=== PATIENT | male | born 1995 | race Caucasian/White ===

== ENCOUNTER 2019-07-04 13:36 | Emergency (ER) | payer SELFPAY ==
[2019-07-04 13:37] VITALS: BP 179/97; PULSE 100; RESP 17; TEMP 37.1; O2SAT 95; BMI 42.1
--- NOTE | 2019-07-04 13:52 | PC.NURSE ---
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 Patient reports yesterday his feet were severly swollen to the point when ambulating in bare feet his toes did not touch floor. Patient has minimal if any swelling at present time. Pulses diminished bilaterally with Left > Right. Capillary refill > 3 seconds. Patient reports a sensation of pins and needles.
[2019-07-04 14:38] LABS: Basophils % 0.5 %; Eosinophils # 0.2 10^3/uL (0.0-0.8); Hematocrit 41.7 % (42.0-52.0); Hemoglobin 13.8 g/dL (11.7-16.6); Lymphocytes # 2.1 10^3/uL (0.8-4.8); Lymphocytes % 35.3 %; Mean Corpuscular HGB Conc 33.1 g/dL (30.0-36.0); Mean Corpuscular Hemoglobin 27.9 pg (28.0-34.0); Mean Corpuscular Volume 84.2 fL (80-94); Monocytes # 0.5 10^3/uL (0.2-0.9); Monocytes % 8.7 %; Neutrophils # 3.1 10^3/uL (1.8-7.7); Neutrophils % 52.3 %; Nucleated Red Blood Cells % 0 %; Platelet Count 261 10^3/cmm (130-400); Red Blood Count 4.95 10^6/uL (4.1-5.3); Red Cell Distribution Width 12.7 % (12.1-15.1)
[2019-07-04 14:59] LABS: Alanine Aminotransferase 108 U/L (0-41); Albumin Level 4.5 g/dL (3.5-5.2); Alkaline Phosphatase 87 IU/L (40-130); Aspartate Amino Transferase 61 U/L (0-40); Blood Urea Nitrogen 19 mg/dL (6-20); Calcium 9.7 mg/dL (8.5-10.5); Carbon Dioxide 24 mmol/L (22-29); Chloride 105 mmol/L (98-107); Globulin 3.5 g/dL (1.3-4.6); Glomerular Filtration Rate 91.8 mL/min (90-130); Glucose 132 mg/dL (65-115); Sodium 139 mmol/L (136-145); Total Bilirubin 0.3 mg/dL (0.15-1.2)
--- NOTE | 2019-07-04 15:09 | ED_ITS ---
HPI - Extremity Problem General: Chief complaint: Extremity Injury, Lower Stated complaint: SWOLLEN FEET Time Seen by Provider: 07/04/19 13:52 Source: patient Mode of arrival: ambulatory Limitations: no limitations History of Present Illness: HPI Narrative: Patient is a 24-year-old male who presents to ED today with complaints of bilateral feet swelling that he noticed yesterday when he got off work. Patient states the swelling is subsided upon arrival. He denies color/temperature changes in his extremities. No numbness/tingling/loss of sensation. Denies chest pain, shortness of breath, difficulty breathing. He has no other complaints currently. Patient states he is on his feet all day at work. MD Complaint: extremity swelling Pain Consistency: constant Location: left, right and lower extremity Radiation: none Relieving factors: elevation Associated symptoms: Reports no associated symptoms; Deny chest pain, fever(s) or rash Review of Systems Const: Denies: fever, chills, body aches, fatigue or malaise Card: Reports: swelling of feet/ankles; Denies: chest pain, palpitations, irregular heart rhythm, edema, lightheadedness, syncope, pre-syncope, shortness of breath on exertion, shortness of breath when lying down, leg pain with exertion or bluish discoloration of hands/feet Resp: Denies: shortness of breath, productive cough, coughing up blood or chest congestion Skin/Breast: Denies: rash, skin tenderness or changes in skin color Neuro: Denies: numbness in extremities, weakness in extremities or changes in sensation PFSH ED PFSH: Statuses (acute, chronic, etc) shown below reflect problem list status as previously entered and may not be historically accurate Social History Smoking and tobacco status: former smoker Physical Exam Const: COMMON NORMALS: no apparent distress, oriented x3, no limitations, alert and well nourished Resp: COMMON NORMALS: normal respiratory effort and clear to auscultation bilaterally AUSCULTATION: clear to auscultation bilaterally Cardio: COMMON NORMALS: regular rate and regular rhythm RATE: regular rate RHYTHM: regular rhythm Extremity: COMMON NORMALS: normal to inspection, full ROM, normal capillary refill, no joint enlargement, no clubbing, cyanosis or edema, no calf tenderness and no pedal edema OTHER: no swelling appreciated on exam today; pt states swelling has subsided Neuro: COMMON NORMALS: oriented x3 SENSORIUM/ORIENTATION: Yes alert Course Vital Signs: Vital signs: Vital Signs Temperature 98.7 F 07/04/19 13:37 Pulse Rate 100 07/04/19 13:37 Respiratory Rate 17 07/04/19 13:37 Blood Pressure 179/97 07/04/19 13:37 Pulse Oximetry 95 07/04/19 13:37 MDM - Extremity (Nontraumatic) Lab Data: Labs: Lab Results 07/04/19 07/04/19 Range/Units 14:30 14:30 WBC 6.0 (4.0-10.0) 10^3/ uL RBC 4.95 (4.1-5.3) 10^6/u L Hgb 13.8 (11.7-16.6) g/dL Hct 41.7 L (42.0-52.0) % MCV 84.2 (80-94) fL MCH 27.9 L (28.0-34.0) pg MCHC 33.1 (30.0-36.0) g/dL RDW 12.7 (12.1-15.1) % Plt Count 261 (130-400) 10^3/c mm MPV 10.0 (7.4-10.4) fL Neut % (Auto) 52.3 % Lymph % (Auto) 35.3 % [place] % (Auto) 8.7 % Eos % (Auto) 3.0 % Baso % (Auto) 0.5 % Neut # (Auto) 3.1 (1.8-7.7) 10^3/u L Lymph # (Auto) 2.1 (0.8-4.8) 10^3/u L [place] # (Auto) 0.5 (0.2-0.9) 10^3/u L Eos # (Auto) 0.2 (0.0-0.8) 10^3/u L Baso # (Auto) 0.0 (0.0-0.1) 10^3/u L Nucleated RBC % (a uto) 0 % Nucleated RBCs # 0.0 /100WBC Sodium 139 (136-145) mmol/L Potassium 4.0 (3.5-5.1) mmol/L Chloride 105 (98-107) mmol/L Carbon Dioxide 24 (22-29) mmol/L Anion Gap 14.0 (5-19) BUN 19 (6-20) mg/dL Creatinine 1.0 (0.7-1.2) mg/dL GFR Calculation 91.8 (90-130) mL/min Glucose 132 H (65-115) mg/dL Calcium 9.7 (8.5-10.5) mg/dL Total Bilirubin 0.3 (0.15-1.2) mg/dL AST 61 H (0-40) U/L ALT 108 H (0-41) U/L Alkaline Phosphata se 87 (40-130) IU/L Total Protein 8.0 (6.6-8.7) g/dL Albumin 4.5 (3.5-5.2) g/dL Globulin 3.5 (1.3-4.6) g/dL Discharge Plan Discharge Patient Disposition: Home, Self-Care Clinical Impression: Pedal edema Condition: Stable Prescriptions: No Action No Known Home Medications RF: 0 Discharge Orders: Discharge Order (Routine); Ordered 07/04/19 Ordered By: Pavithra Merrill Discharge Diet: Usual diet Discharge Activity: Resume usual activity Activity Restrictions/Additional Instructions: 1) Compression stockings 2) Ice and elevation after work Coding Level of Care Code ED Loading Inspector for Yoly Ramirez
[2019-07-04 15:59] VITALS: BP 149/91; PULSE 82; RESP 16; TEMP 36.6; O2SAT 98
== END 2019-07-04 15:25 | disposition home or self-care (01) ==
PROVIDERS: Emergency Provider Physician Assistant
DX: R60.0 Localized edema (principal); Z87.891 Personal history of nicotine dependence
CPT/HCPCS: 36415; 80053; 85025; 99281; 99282

== ENCOUNTER 2023-06-02 19:23 | Emergency (ER) | payer SELFPAY ==
--- NOTE | 2023-06-02 19:31 | XRR_ITS ---
PROCEDURE INFORMATION: Exam: XR Chest Exam date and time: 06/02/2023 8:00 PM Age: 28 years old Clinical indication: Pain; Chest pressure; Additional info: Cp TECHNIQUE: Imaging protocol: Radiologic exam of the chest. Views: 1 view. COMPARISON: CR XR chest 2V* [id number] 07/06/2017 10:43 AM FINDINGS: Lungs: Unremarkable. No consolidation. Pleural spaces: Unremarkable. No pleural effusion. No pneumothorax. Heart/Mediastinum: Unremarkable. No cardiomegaly. Bones/joints: Unremarkable. XR/XR chest 1V portable [id number] IMPRESSION: No acute findings.
[2023-06-02 19:42] VITALS: BP 173/101; PULSE 118; RESP 20; TEMP 37.4; O2SAT 95
--- NOTE | 2023-06-02 20:57 | W.ED.GENADLT ---
HPI - General Adult General: Chief complaint: General Medical Stated complaint: Pain in lung fever Time Seen by Provider: 06/02/23 20:56 History of Present Illness: 28-year-old male patient comes in today for complaints of cough and congestion for the last 4 days. Patient reports that his daughter had the flu. Patient continues to have symptoms and feels like he is not getting better. Patient also reports difficulty swallowing and sore throat. Review of Systems General: Reports: 10 or more systems reviewed and unremarkable except in HPI and below ENMT: Reports: throat pain Resp: Reports: non-productive cough PFSH ED PFSH: Social History Smoking and tobacco/nicotine status: former use of tobacco/nicotine Physical Exam Const: COMMON NORMALS: alert HENMT: COMMON NORMALS: normocephalic HEAD & SCALP: normocephalic MOUTH: Normal oral and palatal mucosa present THROAT: posterior oropharynx abnormal edema and erythema Neck/C-Spine: COMMON NORMALS: full ROM Chest: COMMONS NORMALS: normal inspection of the chest Resp: COMMON NORMALS: normal respiratory effort and clear to auscultation bilaterally AUSCULTATION: clear to auscultation bilaterally Cardio: COMMON NORMALS: regular rate RATE: regular rate GI: COMMON NORMALS: Soft to palpation and non-tender PALPATION: Yes Soft to palpation Back/Pelvis: COMMON NORMALS: thoracic and lumbar spine normal to inspection Extremity: COMMON NORMALS: normal to inspection Neuro: SENSORIUM/ORIENTATION: Yes alert Skin: COMMON NORMALS: turgor normal GENERAL SKIN EXAM: turgor normal Course Vital Signs: Vital signs: Vital Signs Temperature 99.3 F 06/02/23 19:42 Pulse Rate 118 H 06/02/23 19:42 Respiratory Rate 20 H 06/02/23 19:42 Blood Pressure 194/105 06/02/23 21:34 Pulse Oximetry 98 06/02/23 21:34 [facility] - General Adult Medical Decision Making Patient presents tonight with complaints of cough and congestion for 4 days and worsening sore throat. On exam patient has erythema and exudate to the posterior pharynx. Respirations are even lungs are clear to auscultation. Bilateral TMs are normal. Vital signs are normal except for elevated blood pressure. Differential diagnosis includes pneumonia, pharyngitis, influenza, bacterial respiratory infection. Patient definitely has some pharyngitis and a probable influenza syndrome. Will go ahead and treat with antibiotics due to patient's erythema and tonsillar swelling. He may have a secondary bacterial/strep infection. Patient was placed on Augmentin and given a dose of dexamethasone due to the swelling and redness in the posterior pharynx and difficulty swallowing. Patient will be continued on Augmentin and benzoate capsules for his cough. Lab Data Radiology Impressions Chest X-Ray 06/02/23 19:31 IMPRESSION: No acute findings. Laboratory Results POC Glucose 98 mg/dL (70-110) 06/02/23 21:16 All radiology interpretation(s) finalized by discharge Discharge Plan Discharge Patient Disposition: Home Clinical Impression: Influenza Pharyngitis Qualifiers: Pharyngitis/tonsillitis etiology: unspecified etiology Qualified Code(s): J02.9 - Acute pharyngitis, unspecified Condition: Stable Prescriptions: New amoxicillin-pot clavulanate 875-125 mg tablet 1 tab PO Q12H Qty: 10 0RF benzonatate 100 mg capsule 100 mg PO TID PRN (Reason: cough) Qty: 15 0RF Discharge Orders: Discharge ED (Routine); Ordered 06/02/23 Ordered By: Mynor Marcano Discharge Diet: Usual diet Discharge Activity: Increase activity as tolerated Patient Instructions: Pharyngitis (ED) Activity Restrictions/Additional Instructions: Drink plenty of water and fluids. Take Augmentin 1 tablet twice a day for 5 days. Use benzonatate capsules as needed to help with cough. You may also use [id number] Delsym for further cough relief. Follow-up with primary care in 1 week for recheck. Return to ED for new concerns. Coding Level of Care Code ED Group Program Manager for Yoly Ramirez
[2023-06-02 21:18] LABS: Glucose Point of Care 98 mg/dL (70-110)
[2023-06-02] MEDS: benzonatate 100 mg Capsule PO (21:22)
[2023-06-02] MEDS: dexamethasone 10 mg/mL INJ IM (21:22)
[2023-06-02] MEDS: amoxicillin-clav 875-125 mg Tablet 1 TAB PO (21:23)
[2023-06-02 21:34] VITALS: BP 194/105; O2SAT 98
== END 2023-06-02 21:36 | disposition home or self-care (01) ==
PROVIDERS: Emergency Provider Nurse Practitioner Family
DX: J02.9 Acute pharyngitis, unspecified (principal); J11.1 Influenza due to unidentified influenza virus with other respiratory manifestations; Z87.891 Personal history of nicotine dependence
CPT/HCPCS: 36416; 71045; 82962; 96372; 99284; J1100

== ENCOUNTER 2023-07-25 19:33 | Emergency (ER) | payer SELFPAY ==
[2023-07-25 19:36] VITALS: BP 169/52; PULSE 122; RESP 16; TEMP 36.6; O2SAT 95; BMI 42.2
--- NOTE | 2023-07-25 19:40 | XRR_ITS ---
PROCEDURE INFORMATION: Exam: XR Left Knee Exam date and time: 07/25/2023 7:54 PM Age: 28 years old Clinical indication: Pain; Knee; Left; Additional info: Injury lt knee pain no trauma TECHNIQUE: Imaging protocol: Radiologic exam of the left knee. Views: 3 views. COMPARISON: CR XR knee LT 3V* [id number] 03/22/2018 3:25 AM FINDINGS: Bones/joints: There is mild degenerative disease of the knee joint. Tiny chip of bone is seen at the medial aspect of the medial joint suggestive of MCL injury. There is a Segond fracture, which is associated with ACL injury. There is moderate knee joint effusion. Soft tissues: Normal. XR/XR knee LT 3V* [id number] IMPRESSION: Segond fracture and injury of the medial collateral ligament. Moderate knee joint effusion. Segond fracture is associated with ACL injury in 75% of cases.
[2023-07-25 19:46] VITALS: BP 206/124; RESP 18; O2SAT 97
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
[2023-07-25 21:48] VITALS: BP 156/101
[2023-07-25] MEDS: cloNIDine 0.1 mg Tablet 0.100000000000000006 MG PO (21:48)
[2023-07-25 21:49] VITALS: BP 156/101; PULSE 109; RESP 18; O2SAT 95
--- NOTE | 2023-07-26 07:22 | DCPLANNER ---
Message sent to Ortho for follow up
--- NOTE | 2023-07-28 11:21 | DCPLANNER ---
Patient called on 07/28/23 at 1121 and requested his referral be sent to a clinic in [place]. Patient was unsure of clinic name, but had the fax number to this clinic [phone]. I faxed this patients chart to the clinic on 07/28/23 at 1125am. Clinic should contact patient for appt.
== END 2023-07-25 22:11 | disposition home or self-care (01) ==
PROVIDERS: Emergency Provider Physician Assistant
DX: S82.125A Nondisplaced fracture of lateral condyle of left tibia, initial encounter for closed fracture (principal); S89.82XA Other specified injuries of left lower leg, initial encounter; Z87.891 Personal history of nicotine dependence; X58.XXXA Exposure to other specified factors, initial encounter
CPT/HCPCS: 29530; 73562; 99283; E0114